=== PATIENT | female | born 1985 | race Caucasian/White ===

== ENCOUNTER 2021-12-26 18:04 | Emergency (ER) | payer OTHER ==
[2021-12-26] MEDS ORDERED: PERCOCET 325 MG1 TA2 PO (19:41)
[2021-12-26 19:55] VITALS: BP 117/68
== END 2021-12-26 19:55 | disposition home or self-care (01) ==
LOC: ED 18:04
DX: S09.92XA Unspecified injury of nose, initial encounter (principal); Z28.310 Unvaccinated for COVID-19; W21.03XA Struck by baseball, initial encounter
CPT/HCPCS: J1885; J2270